=== PATIENT | female | born 1995 | race Caucasian/White ===

== ENCOUNTER 2019-08-06 09:56 | Emergency (ER) | payer SELFPAY ==
[2019-08-06 09:58] VITALS: BP 145/90; PULSE 93; RESP 17; TEMP 36.9; O2SAT 97; BMI 26.7
--- NOTE | 2019-08-06 10:02 | ED_ITS ---
Entered by Yesica Barber, acting as scribe for HPI - General Adult General: Chief complaint: Dental/Oral Stated complaint: Throat is swollen Time Seen by Provider: 08/06/19 10:02 Source: patient Mode of arrival: ambulatory Limitations: no limitations History of Present Illness: HPI narrative: 23 yo female presents with R ear discomfort and sore throat on the R side. pt states this started last night. nothing makes this better or worse. pt did no medications prior to coming in. pt denies any other symptoms at this time. MD complaint: sore throat on R side, R ear pain Onset (ago): day(s) (last night) Location: head and neck Radiation: non-radiation Severity: moderate Quality: sharp Pain Consistency: constant Relieving factors: none Exacerbating factors: none Associated symptoms: Reports no associated symptoms; Deny chest pain, dyspnea, headache(s), nausea, rash or vomiting Treatments prior to arrival: none Review of Systems General: Reports: 10 or more systems reviewed and unremarkable except in HPI and below Const: Denies: fever or chills Eyes: Denies: blurry vision or eye discharge ENMT: Reports: throat pain, painful swallowing and ear pain (R side) Card: Denies: chest pain or shortness of breath on exertion Resp: Denies: shortness of breath, productive cough or non-productive cough GI: Denies: abdominal pain, nausea, vomiting, diarrhea or constipation : Denies: painful urination Musc: Reports: joint pain, joint swelling, redness, joint warmth, joint stiffness and limited range of motion; Denies: neck pain or back pain Skin/Breast: Denies: rash, redness or sores Neuro: Denies: headache, numbness in extremities, weakness in extremities or dizziness Psych: Denies: anxiety or depression Endo: Denies: excessive urination or excessive thirst Daryl/Lymph: Denies: easy bruising, petechiae or enlarged lymph nodes All/Imm: Denies: hives or acute wheezing PFSH ED PFSH: Statuses (acute, chronic, etc) shown below reflect problem list status as previously entered and may not be historically accurate Social History Smoking and tobacco status: never smoked Physical Exam Const: COMMON NORMALS: no apparent distress, oriented x3, no limitations, healthy appearing, alert and well nourished GENERAL APPEARANCE: cooperative, comfortable, well kempt and well developed ORIENTATION/CONSCIOUSNESS: Yes awake, Yes oriented to person, Yes oriented to place and Yes oriented to time HENMT: COMMON NORMALS: normocephalic, head/scalp atraumatic, hearing grossly normal bilaterally, external ears normal, EAC's normal, TM's normal bilaterally, external nose normal, nasal mucous membranes and turbinates normal and moist oral mucous membranes HEAD & SCALP: normocephalic and atraumatic FACE & SINUS: normal facial exam, sinuses nontender and face symmetric NOSE: external nose normal and nasal mucous membranes and turbinates normal EXTERNAL EAR: Yes external ears normal and Yes external ear abnormal EXTERNAL AUDITORY CANAL: EAC's normal TYMPANIC MEMBRANE: TM's normal bilaterally MOUTH: oral and palatal mucosa normal and tongue normal THROAT: uvula midline; posterior oropharynx not normal (posterior pharynx erythema. no significant swelling, no exudates), no peritonsillar mass and uvula not laterally displaced Eye: COMMON NORMALS: EOMs intact bilaterally and conjunctivae normal GENERAL EYE: normal appearance of both eyes ALIGNMENT: Yes alignment normal EYELID: eyelids normal CONJUNCTIVA: Yes conjunctivae normal SCLERA: sclerae normal Neck/C-Spine: COMMON NORMALS: full ROM and no lymphadenopathy GENERAL: Yes normal visual inspection CERVICAL SPINE: Yes cervical ROM normal Lymph: LYMPHATIC: no lymphadenopathy noted Chest: COMMONS NORMALS: inspection of chest normal CHEST: Yes symmetrical chest wall rise Resp: COMMON NORMALS: normal respiratory effort, no use of accessory muscles and clear to auscultation bilaterally EFFORT & INSPECTION: Yes able to speak in complete sentences, Yes symmetric chest movement and No respiratory distress AUSCULTATION: clear to auscultation bilaterally Cardio: COMMON NORMALS: regular rate and regular rhythm RATE: regular rate RHYTHM: regular rhythm PERIPHERAL PULSES: radial pulses present GI: COMMON NORMALS: normal to inspection, nondistended, normoactive bowel sounds, soft to palpation and non-tender PALPATION: Yes soft RECTAL EXAM: deferred : COMMON NORMALS: Yes no CVA tenderness BLADDER/KIDNEY EXAM: Yes no CVA tenderness Back/Pelvis: COMMON NORMALS: no CVA tenderness THORACIC SPINE/UPPER BACK: No pain with ROM LUMBAR SPINE/LOWER BACK: No pain with ROM Extremity: COMMON NORMALS: normal to inspection, full ROM, normal capillary refill and no pedal edema GENERAL: Yes normal exam except as noted Neuro: FROYLAN COMA SCALE: GCS not evaluated COMMON NORMALS: oriented x3, moves all extremities, no focal motor deficits and no sensory deficits noted SENSORIUM/ORIENTATION: Yes alert, Yes oriented to person, Yes oriented to place and Yes oriented to time SPEECH: speech normal GAIT: Yes normal gait Psych: COMMON NORMALS: mental status grossly normal, thought process normal, cooperative, affect normal and speech normal APPEARANCE: Yes grossly normal and Yes well kempt ATTITUDE: Yes calm ACTIVITY/MOTOR BEHAVIOR: Yes appropriate eye contact SPEECH: Yes normal speech THOUGHT PROCESS: normal thought process THOUGHT CONTENT: Yes normal thought content ATTENTION/CONCENTRATION: Yes attention grossly intact MEMORY/COGNITION: Yes memory grossly intact and Yes cognition grossly intact INSIGHT: insight good JUDGEMENT: judgment good Skin: COMMON NORMALS: no rashes or lesions noted, skin turgor normal and no petechiae GENERAL SKIN EXAM: no rashes or lesions noted and turgor normal RASHES: no rashes TRAUMA: no lacerations or abrasions HAIR: normal NAILS: normal Course ED course: pt is in no acute distress. OP mild erythema. no e/o significant swelling. no stridor. no LAD. do not believe pt needs further workup. will treat symptomatically for pharyngitis. The patient was reexamined and I have informed them of all their test results and diagnoses. I have given the patient instructions regarding their diagnosis and expectations. I have recommended they follow-up with their primary care provider or another physician or specialist of their choice and stressed the importance of this follow-up. I have explained to the patient that emergent conditions may arise and to return to the closest Emergency Department for new, worsening, or any persistent problems. The patient has been instructed to take all medications (if any) as prescribed. The patient verbalizes understanding of the above information as well as discharge instructions and is ready for discharge. Vital Signs: Vital signs: Vital Signs Temperature 98.4 F 08/06/19 09:58 Pulse Rate 70 08/06/19 10:47 Respiratory Rate 14 08/06/19 10:47 Blood Pressure 145/90 08/06/19 10:47 Pulse Oximetry 97 08/06/19 10:47 [facility] - General Adult Differential Diagnosis: Differential Diagnosis: viral pharyngits, tonsilitis, strep, [employer]OR, retropharyngeal abscess/infection among others Discharge Plan Discharge Patient Disposition: Home, Self-Care Clinical Impression: Pharyngitis, acute Qualifiers: Pharyngitis/tonsillitis etiology: unspecified etiology Qualified Code(s): J02.9 - Acute pharyngitis, unspecified Condition: Stable Prescriptions: No Action levothyroxine 50 mcg Capsule 50 mcg PO DAILY RF: 0 Discharge Orders: Discharge Order (Routine); Ordered 08/06/19 Ordered By: Timur sEtrella Discharge Diet: Usual diet Discharge Activity: Resume usual activity Patient Instructions: Pharyngitis (ED) Activity Restrictions/Additional Instructions: Your signs and symptoms are most likely caused by a viral illness. Viruses are not treated with antibiotics, but are best treated with rest, pain medications and therapies aimed at relieving symptoms. Viruses can cause sore throat, a runny or congested nose and sinuses, eye redness or irritation, cough, fever, fatigue and weakness. Normally viral illnesses can last from a few days to sometimes 1 to 2 weeks. Staying hydrated will help you feel better and relieve some symptoms. Sore throat can be treated with wbcx-pjk-vqraggd medications like Tylenol or ibuprofen. Saltwater gargles can also help. Ynhv-mem-rqvemic sprays or lozenges may also help relieve symptoms. Prfv-qus-sqmbpxl antihistamines or decongestants may be helpful. Check recommended ages to see if these are safe with children. Medications with Guaifenesin (like Mucinex) can help with relieving chest congestion. You must drink plenty of water with these medications in order for them to be helpful. Nasal sprays like Afrin can be useful for temporary relief of nasal congestion but only use for 2-3 days as directed. Overuse actually makes congestion worse. I actually recommend only using these at night to help [him/her] breathe better and get a good night???s sleep. Nasal washes like the Neti-pot can also help clear nasal congestion. Medicines that contain dextromethorphan can be used to help with cough in teenagers and adults. Pwgr-ipj-fyoavhd cough and cold medications should not be used in children under 6 years old. Check with pharmacist or with the package recommendations regarding children from 6-12 years old. Bacterial illnesses can sometimes follow a viral illness. So, if your symptoms have gotten better over several days and then suddenly worsen, it may be beneficial to follow-up with your primary care provider or seek medical care if you think your symptoms are worsening. Discharge Date/Time: 08/06/19 10:48 Coding Level of Care Code ED [employer] for [employer]g Fwd Exam Problem Focused The documentation recorded by the Sunil muhammad Bridget Annette, accurately reflects the service I personally performed and the decisions made by me, Timur Estrella MD Aug 06, 2019 09:56
[2019-08-06] MEDS: ibuprofen 600 mg Tablet PO (10:42)
[2019-08-06 10:47] VITALS: BP 145/90; PULSE 70; RESP 14; O2SAT 97
== END 2019-08-06 10:48 | disposition home or self-care (01) ==
PROVIDERS: Emergency Provider Emergency Medicine
DX: J02.9 Acute pharyngitis, unspecified (principal)
CPT/HCPCS: 99281